=== PATIENT | female | born 1945 | race Caucasian/White ===

== ENCOUNTER 2025-02-11 14:52 | Emergency (ER) | payer MEDICARE, SELFPAY ==
[2025-02-11 15:05] VITALS: BP 123/67; PULSE 76; PULSE 78; RESP 16; RESP 21; TEMP 37; O2SAT 97; O2SAT 98
[2025-02-11 15:09] VITALS: BMI 28.3
--- NOTE | 2025-02-11 15:13 | EKG_ITS ---
[facility] Test Date: 2025-02-11 Pat Name: ADIEL CRUZ Department: Room: - Gender: Female Professor Of Chemistry: : 1945 Requested By: Fernando Alva Order Number: [id number] Reading MD: Fernando Alva Measurements Intervals [place] Rate: 66 P: 52 [place]: 206 QRS: -57 QRSD: 144 T: 139 QT: 408 QTc: 428 Interpretive Statements SINUS RHYTHM WITH SINUS ARRHYTHMIA LEFT AXIS DEVIATION [QRS AXIS < -30] LEFT BUNDLE BRANCH BLOCK [120+ ms QRS DURATION, 80+ ms Q/S IN V1/V2, 85+ ms R IN I/aVL/V5/V6] Compared to ECG 10/07/2023 13:30:07 Left bundle-branch block now present Intraventricular conduction delay no longer present Left ventricular hypertrophy no longer present ST (T wave) deviation no longer present Myocardial infarct finding no longer present /store/S0/[id number]/[id number].pdf
--- NOTE | 2025-02-11 15:26 | EDNOTE_ITS ---
ED Syncope RME/HPI General Chief Complaint: Syncope / Near Syncope Stated Complaint: SYNCOPAL Time Seen by Provider: 02/11/25 15:11 Arrival date/time: 02/11/25 14:52 RME / HPI RME / HPI narrative: DR. MARTEL MAIN ED EVALUATION: 79 year old female presents to the Emergency Department [facility] with complaint of syncope prior to arrival. Per EMS, patient was at [employer] and had a witnessed syncopal episode. Patient felt light-headed and felt like she was going to pass out and sweaty so she went to the front of the store and asked for help when she passed out. Patient lost of consciousness for a minute. Patient states she esteban miller skips breakfast and has lunch at 11 AM; however, today she skipped both breakfast and lunch and went shopping. Patient does not remember falling or if a lady assisted her so she would not fall; patient states she woke up and a lady was holding her and patient was in a sitting position. Patient thinks she did not fall because she has no pain and no soreness anywhere. Denies any pain at all. No chest pain or shortness of breath. No nausea, vomiting, or diarrhea. No dysuria or urinary symptoms. PMHx: Hypertension, CHF, diabetes, and a CO 15 years ago. Takes lorazepam, furosemide 10 mg, and potassium supplements 3x/week. Social Hx: No tobacco, alcohol, or substance use. PCP is Dr. Castro Related Data Home Medications ?Medication ?Instructions ?Recorded ?Confirmed Carvedilol * (COREG *) PO BID #0 tabs 07/16/14 Digoxin PO QDAY ##0 07/16/14 Furosemide * (LASIX *) PO QDAY #0 tabs 07/16/14 Lisinopril * (ZESTRIL *) PO QDAY #0 tabs 07/16/14 Lovastatin PO HS ##0 07/16/14 POTASSIUM CHLORIDE (K-DUR) PO QDAY ##0 07/16/14 aspirin 325 mg tablet,delayed 325 mg PO QDAY ##0 07/16 release (Aspirin EC) lorazepam 0.5 mg tablet 0.5 mg PO BID #0 tabs Previous Rx's ?Medication ?Instructions ?Recorded ibuprofen 600 mg tablet 600 mg PO Q6HR PRN PAIN #30 tabs 07/16/14 lorazepam 0.5 mg tablet (Ativan) 0.5 mg PO BID PRN anx iety #20 tabs 10/07/23 Allergies Allergy/AdvReac Type Severity Reaction Status Date / Time lactose Allergy Severe Abdominal Unverified 10/07/23 13:21 Pain tuna oil Allergy Severe Hives Verified 10/07/23 13:21 Review of Systems Review of Systems Systems Reviewed: All systems reviewed, normal except as documented Past Medical History Past Medical History CARDIAC: Positive Congestive Heart Failure RESPIRATORY: Negative Chronic Obstructive Pulmonary Disease (COPD) GENITOURINARY: Negative Renal Disease ENDOCRINE: Positive Diabetes Mellitus Type 2; Negative Diabetes Mellitus Type 1 Social History SMOKING STATUS: Never smoker SUBSTANCE USE: does not use ALCOHOL: Never ED Exam Narrative Physical exam: GENERAL APPEARANCE: AxOx4, generally well-appearing, no acute distress. HEENT: NC, AT. MMM. EOMI, clear conjunctiva, oropharynx clear. NECK: Supple without lymphadenopathy. No stiffness or restricted ROM. HEART: Normal rate and regular rhythm, normal S1/S1, no m/r/g LUNGS: CTAB, moving air well. No crackles or wheezes are heard. ABDOMEN: Soft, nontender, nondistended with good bowel sounds heard. BACK: No midline C/T/L spine pain or deformity, No CVAT, no obvious deformity. EXTREMITIES: Without cyanosis, clubbing or edema. MUSCULOSKELETAL: FROM of all major joints, no chest tenderness NEUROLOGICAL: Grossly nonfocal. Alert and oriented, moving all 4 extremities. CN not formally tested but appear grossly intact. Skin: Warm and dry without any rash. Course Quality Measures none Orders Category Date Time Status EKG (ED ONLY) *Do not use* NOW Care 02/11/25 15:13 Completed EKG (ED Only) Stat Exams 02/11/25 15:13 Draft CBC Stat Lab 02/11/25 15:22 Completed CMP [Comprehensive Metabolic Panel] Stat Lab 02/11/25 15:22 Completed Magnesium Stat Lab 02/11/25 15:22 Completed Troponin I Stat Lab 02/11/25 15:22 Completed Troponin I Stat Lab 02/11/25 18:06 Received Vital Signs Vital signs: Vital Signs Temperature 98.6 F 02/11/25 15:05 Pulse Rate 76 02/11/25 15:05 Respiratory Rate 21 H 02/11/25 15:05 Blood Pressure 123/67 02/11/25 15:05 Pulse Oximetry (%) 98 02/11/25 15:05 Oxygen Delivery Method Room Air 02/11/25 15:05 Procedures -ED EKG Interpretation #1: Date of EK02/11/25 Time of EK:25 Rate: 66 Interpretation: Interpreted by me Additional EKG comment: sinus rhythm, rate 66, widen QRS, left bundle branch block, no acute ST-T wave changes, unchanged from EKG done on 10/07/2023 Syncope MDM Narrative MDM Narrative:: Kirstin Jiménez am scribing for and in the presence of Dr. Martel. Patient data External records reviewed:: EMS form Clinical information provided by:: patient and EMS Social determinants that could affect healthcare access:: none Patient has the following chronic illnesses:: Hypertension, CHF, diabetes, and a CO 15 years ago. Takes lorazepam, furosemide 10 mg, and potassium supplements 3x/week. How is presenting disease/condition affected by chronic disease/condition?: exacerbated by Evaluation data The following diagnostics were reviewed and interpreted by me:: lab results and EKG tracing(s) Lab and/or radiology exams considered but not ordered:: none Interpretation Summary: See above under MDM narrative. Medications / Prescriptions Medications or Prescriptions considered but not ordered:: none Medication administrations:: none Consultations Consultation(s) initiated? (list below): No Diagnosis Syncope Differential Diagnosis: syncope due to orthostatic hypotension, vasovagal syncope, subarachnoid hemorrhage and dehydration Most likely diagnosis given after review of the tests above:: Vasovagal syncope Admission Indicated Admission indicated?: not indicated Admission Request Was there a request for admission?: No Disposition Plan Disposition Plan: Discharge Discharge Attestation Discharge Attestation: The patient and all family members were given an opportunity to ask questions and understood the discharge instructions. Discharge instructions specifically effects, indications for sooner follow up or return to the emergency department, and the expected course of current diagnosis. Patient condition: Stable Discharge Plan Plan Patient Disposition: HOME (Self Care) Prescriptions/Referrals Prescriptions/Med Rec: No Action lorazepam 0.5 MG tablet 0.5 mg PO BID Qty: 0 aspirin [Aspirin EC] 325 MG tablet,delayed release (DR/EC) 325 mg PO QDAY Qty: 0 Carvedilol * (COREG *) tablet PO BID Qty: 0 Digoxin tablet PO QDAY Qty: 0 Furosemide * (LASIX *) tablet PO QDAY Qty: 0 Lisinopril * (ZESTRIL *) tablet PO QDAY Qty: 0 Lovastatin tablet PO HS Qty: 0 POTASSIUM CHLORIDE (K-DUR) TABLET, CONTROLLED-RELEASE PO QDAY Qty: 0 ibuprofen 600 MG tablet 600 mg PO Q6HR PRN (Reason: PAIN) Qty: 30 0RF lorazepam [Ativan] 0.5 mg tablet 0.5 mg PO BID PRN (Reason: anxiety) Qty: 20 0RF Referrals: Mio Castro MD [Primary Care Provider] - In 1 week Problem List Clinical Impression: Vasovagal syncope Patient/Caregiver Discharge Instructions Education Materials: ED Fainting, Uncertain Cause Additional Instructions: Follow up with your primary doctor in 2-3 days for recheck. You can return to the emergency department sooner if symptoms worsen or for any new or concerning issues. Print Language: Irish Stand Alone Forms: [employer]ola Award Info., Patient Portal Info Letter
[2025-02-11 15:40] LABS: Basophils # (Auto) 0.1 Thou/mm3 (0.0-0.2); Basophils % (Auto) 1 % (0-2.5); Eosinophils # (Auto) 0.2 Thou/mm3 (0.0-0.5); Eosinophils % (Auto) 3 % (0-10); Hematocrit 42.9 % (36.0-46.0); Hemoglobin 14.6 g/dL (12.0-16.0); Immature Granulocytes % (Auto) 0 % (0-0); Immature Granulocytes Auto 0.01 Thou/mm3 (0.00-0.00); Lymphocytes # (Auto) 3.3 Thou/mm3 (1.0-4.8); Lymphocytes % (Auto) 37 % (10-50); Mean Corpuscular Hemoglobin 33.2 pg (25.0-35.0); Mean Corpuscular Volume 98 fL (80-100); Monocytes # (Auto) 0.6 Thou/mm3 (0.0-0.8); Monocytes % (Auto) 7 % (0-12); Neutrophils # (Auto) 4.8 Thou/mm3 (1.8-7.7); Neutrophils % (Auto) 53 % (37-80); Nucleated Red Blood Cell % 0 /100 WBC (0); Platelet Count 218 Thou/mm3 (140-440); RDW Standard Deviation 46.3 fL (36.4-46.3); White Blood Count 9.1 Thou/mm3 (3.6-11.0)
[2025-02-11 16:00] LABS: Alanine Aminotransferase 16 U/L (10-49); Albumin, Serum 4.3 gm/dL (3.4-4.8); Albumin/Globulin Ratio 1.5 (1.2-2.2); Alkaline Phosphatase 82 U/L (46-116); Anion Gap 11 (7-16); Aspartate Amino Transferase 25 U/L (0-34); BUN/Creatinine Ratio 24 Ratio (12-20); Bilirubin,Total 0.8 mg/dL (0.3-1.2); Blood Urea Nitrogen 31 mg/dL (9-23); Carbon Dioxide 25.2 mMol/L (20.0-31.0); Chloride 103 mMol/L (98-107); Creatinine (Component) 1.3 mg/dL (0.6-1.3); Estimated Creatinine Clearance 35.9 mL/min (>60); Globulin 2.8 gm/dL (2.3-3.5); Glucose 161 mg/dL (74-106); Magnesium 2.1 mg/dL (1.6-2.6); Osmolality,Calculated 287 (275-295); Sodium 139 mMol/L (136-145); Total Protein 7.1 gm/dL (5.7-8.2); Troponin I < 0.020 ng/mL (0.0-0.045); eGFR 42 See Note
[2025-02-11 16:13] VITALS: BP 121/61; PULSE 73; RESP 18; TEMP 36.9; O2SAT 95
[2025-02-11 18:23] VITALS: BP 135/84; PULSE 68; RESP 12; TEMP 36.7; O2SAT 96
--- NOTE | 2025-02-11 18:35 | EKG_ITS ---
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
[2025-02-11 18:47] LABS: Troponin I < 0.020 ng/mL (0.0-0.045)
--- NOTE | 2025-02-11 18:58 | PD.EDADDENDU ---
Emergency Room Addendum Addendum Narrative: I took over the care from Dr. Alva at 6 PM on 02/11/2025, see his notes for complete H&P and ED course. He asked me to check the second troponin level, which was negative. Dr Alva prepared discharge instructions. During my watch, the patient remained stable. Justo Bradley MD
== END 2025-02-11 19:10 | disposition home or self-care (01) ==
PROVIDERS: Emergency Medicine; Emergency Provider Emergency Medicine; PCP Family Medicine
DX: R55 Syncope and collapse (principal); I44.7 Left bundle-branch block, unspecified; I45.89 Other specified conduction disorders; I11.0 Hypertensive heart disease with heart failure; I50.9 Heart failure, unspecified; I21.9 Acute myocardial infarction, unspecified
CPT/HCPCS: 36415; 80053; 83735; 84484; 85025; 93005; 99283

== ENCOUNTER → 2025-04-05 | Outpatient (CLI) | payer MEDICARE, SELFPAY ==
--- NOTE | 2025-04-05 11:30 | XR_ITS ---
Examination: Retroperitoneal ultrasound, complete Technique: Multiple high resolution grayscale images of the retroperitoneum obtained, including kidneys and bladder. Exam date and time:April 05, 2025 1108 hours INDICATIONS: Chronic kidney disease stage III diagnosis this month FINDINGS: Right kidney 10.0 cm cortex 1.2 cm 3.4 cm upper pole cyst Left kidney 9.9 cm cortex 1.5 cm 2.3 cm lower pole cyst Moderate renal parenchymal scar formation No bladder mass or bladder calculi Bladder prevoid volume 286 cc postvoid volume 48 cc IMPRESSION: Bilateral renal cortical thinning Moderate bilateral renal pedicle scar formation No hydronephrosis
== END | disposition home or self-care (01) ==
PROVIDERS: PCP Family Medicine; Referring Provider Family Medicine; Visit Provider Family Medicine
DX: N28.89 Other specified disorders of kidney and ureter (principal)
CPT/HCPCS: 76770